=== PATIENT | female | born 1975 | race Caucasian/White ===

== ENCOUNTER 2020-01-31 17:18 | Emergency (ER) | payer BC ==
--- OUTSIDE RECORDS SUMMARY | 2020-01-31 17:20 | XMS REPORT | Clinical Summary ---
:1975 Author Organization [facility] Address [address] [place] [id number] Care Team Providers Name Role Phone Karlos Ordoñez MD Primary Care Provider Allergies Active Allergy Reactions Severity Noted Date Comments Penicillins Hives 06/28/2018 Medications Medication Sig Dispensed Refills Start Date End Date Status ibuprofen (IBU) Take 600 mg by 0 Active 600 MG tablet mouth every 6 (six) hours as needed for mild pain. gabapentin Take one 60 capsule 5 08/31/2018 Active (NEURONTIN) 300 capsule once at mg bedtime x1 capsuleIndicati week, then take ons: Cervical one capsule radicular pain twice a day tiZANidine PLEASE SEE 270 tablet 1 04/13/2019 Active (ZANAFLEX) 4 MG ATTACHED FOR tabletIndicatio DETAILED ns: Cervical DIRECTIONS radicular pain tiZANidine Take 1 tablet 90 tablet 5 08/31/2018 Disc ontinued (ZANAFLEX) 4 MG (4 mg total) by 9 (Reorder) tabletIndicatio mouth every 8 ns: Cervical (eight) hours radicular pain as needed for muscle spasms for up to 30 days. Active Problems No known active problems Encounters Date Type Specialty Care Team Description 04/13/2019 Refill Neurology Anju Navarro MD Cervical rad icular pain after 01/30/2019 Family History Medical History Relation Name Comments Ataxia Father Jama Dx NPH, HAS [employer] Restless legs syndrome Father Jama Dementia Maternal Aunt Pat Dementia Maternal Grandmother Nan Myopathy Mother Maria Isabel Relation Name Status Comments Father Jama Maternal Aunt Pat Maternal Grandmother Nan Mother Maria Isabel Social History Tobacco Use Types Packs/Day Years Used Date Never Smoker Alcohol Use Drinks/Week oz/Week Comments Yes 3 Cans of beer Sex Assigned at Date Recorded Not on file Job Start Date Occupation Industry Not on file Not on file Not on file Travel History Travel Start Travel End No recent travel history available. Last Filed Vital Signs Not on file Plan of Treatment Health Maintenance Due Date Last Done Comments CERVICAL CANCER SCREENING 1994 INFLUENZA VACCINE 02/14/2020 Results Not on fileafter 01/30/2019 Advance Directives For more information, please contact: [phone] Type Date Recorded Patient House Calls Nurse Practitioner Explanati on Advance Directives, Living Will and Medical Power of Airline Pilot
--- OUTSIDE RECORDS SUMMARY | 2020-01-31 17:20 | XMS REPORT | Continuity of Care Document ---
:1975 Author Organization [facility] [employer] Care Team Providers Name Role Phone [facility] [employer] Information Colingo Unavailable Un available Problems Problem Status Onset Classification Date Comments Sourc e Date Reported M54.12 - Active 07/09/19 [facility] "RADICULOPATHY, 16 [facility] CERVICAL REGION DIZZINESS Active 05/23/20 [facility] Depressive Active Problem 08/27/2019 [facility] disorder Jonah (disorder) Hypertensive Resolved Problem 08/27/2019 Dave as disorder, Medical systemic Center, arterial [facility] (disorder) [place] Morbid obesity Active Problem 08/27/2019 O PID (disorder) [place] Medications Medication Details Route Status Patient Ordering Order Source Instructions Provider Date ondansetron 4 mg 4 mg = 1 Active [facility] Dave as oral tablet, tab, PO, 013 Medical disintegrating TID, Nausea Cente r / Vomiting, Dissolve tab under tongue, # 20 tab, 0 Refill(s)Di ssolve tab under tongue meclizine 25 mg 25 mg = 1 Active [facility] Dave as oral tablet tab, PO, 013 Medical TID, Center dizziness, # 20 tab, 0 Refill(s) ondansetron 4 mg 4 mg, 1 Inactive [place] Dave as oral tablet, tab, Route: 013 Medical disintegrating PO, Drug Center form: TABDIS, ONCE, Dosing Weight 109.091, kg, Priority: STAT, Start date: 05/23/13 12:45:00, Stop date: 05/23/13 12:45:00([facility] as: Zofran ODT) meclizine 25 mg, 1 Inactive Fuad [facility] tab, Route: 013 Medical PO, Drug Center form: TAB, ONCE, Dosing Weight 109.091, kg, Priority: STAT, Start date: 05/23/13 12:45:00, Stop date: 05/23/13 12:45:00(Sa me as: Antivert) Allergies, Adverse Reactions, Alerts Substance Category Reaction Severity Reaction Status Date Comments S ource type Reported niacin Assertion Drug Active OPI D allergy [place] penicillins Assertion Drug Active [facility] allergy [place] Immunizations No Data Provided for This Section Results Order Name Results Value Reference Date Interpretation Comments Dorys rce Range IMMUNOLOGY CDC-HIV 1/2 Negative Negative 05/23 Colette s Ab *NA* Medical (05/23/2013 13:48:00) Ce nter CHEMISTRY U Preg Negative Negative 05/23 Normal [facility] (05/23/2013 13:33:09) Tn dical Center URINALYSIS UA 0.2 0.1 - 1.0 05/23 Normal [facility] Urobilinogen Medical Ajo URINALYSIS UA Leuk Est Trace Negative 05/23 ABN [facility] *ABN* Medical (05/23/2013 13:33:09) Ce nter URINALYSIS UA Nitrite Negative Negative 05/23 Normal [facility] (05/23/2013 13:33:09) Tn dical Center URINALYSIS UA Glucose Negative Negative 05/23 Normal [facility] (05/23/2013 13:33:09) Tn dical Center URINALYSIS UA Blood Negative Negative 05/23 Normal [facility] (05/23/2013 13:33:09) Tn dical Center URINALYSIS UA Bili Negative Negative 05/23 [facility] *NA* Medical (05/23/2013 13:33:09) Ce nter URINALYSIS UA Protein Negative Negative 05/23 Normal [facility] (05/23/2013 13:33:09) Tn dical Center URINALYSIS UA Ketones Negative Negative 05/23 [facility] *NA* Medical (05/23/2013 13:33:09) Ce nter URINALYSIS UA pH 7.0 5.0 - 8.0 05/23 Normal [facility] URINALYSIS UA Color Yellow Yellow 05/23 [facility] *NA* Medical (05/23/2013 13:33:09) Ce nter URINALYSIS UA Spec Grav 1.020 <=1.030 05/23 Normal [facility] Center URINALYSIS UA Turbidity Clear Clear 05/23 Normal [facility] (05/23/2013 13:33:09) [facility] UA Sq Epi Occasional Few 05/23 Normal [facility] /LPF [facility] URINALYSIS Micro? Performed 05/23 Normal [facility] (05/23/2013 13:33:09) [facility]IN[facility]IS UA Bacteria Occasional None Seen 05/23 Normal [place] /HPF [facility] URINALYSIS UA RBC None Seen 0 - 2 05/23 Normal [facility] (05/23/2013 13:33:09) [facility] URIN[facility]YSIS UA WBC 0-2 /HPF None Seen 05/23 Normal [facility] CHEMISTRY A/G Ratio 1.0 0.7 - 1.6 05/23 Normal [facility] CHEMISTRY Globulin 3.6 2.0 - 4.0 05/23 Normal [facility] CHEMISTRY B/C Ratio 12 6 - 25 05/23 Normal [facility] CHEMISTRY AGAP 13.5 10.0 - 05/23 Normal [facility] 20.0 [facility] CHEMISTRY Total Protein 7.3 6.4 - 8.4 05/23 Normal Dave [facility] CHEMISTRY Albumin Lvl 3.7 3.5 - 5.0 05/23 Normal [facility] CHEMISTRY ALANINE 24 0 - 65 05/23 Normal [facility] AMINOTRANSFER [facility] CHEMISTRY ASPARTATE 16 0 - 37 05/23 [facility] TRANSAMINASE [facility] CHEMISTRY Bili Total 0.4 0.2 - 1.3 05/23 Normal [facility] CHEMISTRY Alk Phos 91 39 - 136 05/23 Normal [facility] CHEMISTRY eGFR 81 05/23 <sup>1</sup>R esult Medical Comment: The Center eGFR is calculated using the CKD-EPI formula. In most young, healthy individuals the eGFR will be >90 mL/min/1.73m2 . The eGFR declines with age. An eGFR of 60-89 may be normal in some populations, particularly the elderly, for whom the CKD-EPI formula has not been extensively validated. Use of the eGFR is not recommended in the following populations:& lt;br/>
I ndividuals with unstable creatinine concentration s, including patients and those with serious co-morbid conditions.<b r/>
Patie nts with extremes in muscle mass or diet.

The data above are obtained from the National Kidney Disease Education Program (NKDEP) which additionally recommends that when the eGFR is used in patients with extremes of body mass index for purposes of drug dosing, the eGFR should be multiplied by the estimated BMI. CHEMISTRY Calcium Lvl 9.8 8.5 - 10.5 05/23 Normal [facility] CHEMISTRY Chloride Lvl 105 95 - 109 05/23 Normal [facility] CHEMISTRY Sodium Lvl 139 135 - 145 05/23 Normal [facility] CHEMISTRY Creatinine 0.9 0.5 - 1.4 05/23 Normal [facility] CHEMISTRY CO2 25 24 - 32 05/23 Normal [facility] CHEMISTRY Potassium Lvl 4.5 3.5 - 5.1 05/23 Normal [facility] CHEMISTRY BUN 11 7 - 22 05/23 Normal [facility] CHEMISTRY Glucose Lvl 118 70 - 99 05/23 HI <sup>2</sup>I T nterpretive Medical Data: Adult Center reference range values reflect the clinical guidelines
of the [place] [employer]. HEMATOLOGY Segs-Bands # 5.0 1.5 - 8.1 05/23 Normal [facility] HEMATOLOGY Basophils 0.0 0.0 - 1.0 05/23 Normal [facility] HEMATOLOGY Eosinophils 2.7 0.0 - 4.0 05/23 Normal [facility] HEMATOLOGY Monocytes 6.2 2.0 - 12.0 05/23 Normal [facility] HEMATOLOGY Segs 61.7 45.0 - 05/23 Normal [facility] 75.0 [facility] HEMATOLOGY Lymphocytes 29.4 20.0 - 05/23 Normal [place] 40.0 [facility] HEMATOLOGY Lymphocytes # 2.4 1.0 - 5.5 05/23 Normal [facility] HEMATOLOGY Eosinophils # 0.2 0.0 - 0.5 05/23 Normal [facility] HEMATOLOGY Basophils # 0.0 0.0 - 0.2 05/23 Normal [facility] HEMATOLOGY Monocytes # 0.5 0.0 - 0.8 05/23 Normal [facility] HEMATOLOGY WBC X 10x3 8.1 3.7 - 10.4 12/ [place] [facility] HEMATOLOGY RBC X 10x6 5.02 4.20 - 12/09 Normal [place] 5.40 /2012 [facility] HEMATOLOGY Hgb 14.1 12.0 - 12/ Normal [place] 16.0 /2012 [facility] HEMATOLOGY MCHC 32.8 32.0 - 12/ Normal [place] 36.0 /2012 [facility] HEMATOLOGY RDW 12.8 11.5 - 12/ Normal [place] 14.5 /2012 [facility] HEMATOLOGY MPV 7.9 7.4 - 10.4 12/ Normal [place] /2012 [facility] HEMATOLOGY MCH 28.1 27.0 - 12/ Normal [facility] 31.0 /2012 [facility] HEMATOLOGY Hct 43.0 36.0 - 12 Normal [facility] 48.0 /2012 [facility] HEMATOLOGY Platelet 304 133 - 450 12 Normal /2012 [facility] HEMATOLOGY MCV 85.6 81.0 - 12 Normal [facility] 99.0 /2012 [facility] Pathology Reports No Data Provided for This Section Diagnostic Reports Report Value Date Source Hand 2 views Bilateral EXAM: XR BILATERAL HAND 2 VIEWS 0 [facility] [place] DX DATE: 08/25/2019 15:15 CDT INDICATION: - L40.9 Psoriasis, unspecified COMPARISON: None. TECHNIQUE: PA and lateral radiographs of the miguel ateral hands. FINDINGS: No acute fracture or malalignment is identified. Joint spaces and bone mineral density are preserved. No soft tissue abnormality is identified. IMPRESSION: Normal exam of the bilateral hands. Elbow 3 views DX EXAM: XR RIGHT ELBOW 3 VIEWS 08/25/2019 [facility] [place] DATE: 08/25/2019 15:15 CDT INDICATION: - L40.9 Psoriasis, unspecified COMPARISON: None. TECHNIQUE: AP, lateral and oblique radiographs of the elbow FINDINGS: No acute fracture or malalignment is identified. No elbow joint effusion is present. No soft tiss ue abnormality is identified. IMPRESSION: Normal exam of the elbow. Hip bilat w pelvis and EXAM: XR BILATERAL HIP 2 VIEWS AND AP PEL VIS 08/25/2019 [facility] [place] both lat hips DX DATE: 08/25/2019 15:18 CDT INDICATION: - L40.9 Psoriasis, unspecified COMPARISON: None. TECHNIQUE: 2 views of each hip, AP pelvis FINDINGS: No acute fracture or malalignment is identified. Hip joint spaces are preserved bilaterally. Osteophyte formation is present at the bilateral acetabular margins. Sacroiliac joint widths are preserved. No soft tissue abnormality is identified. IMPRESSION: 1. No radiographic evidence of inflammatory spo ndyloarthropathy. 2. Mild bilateral hip joint osteoarthrosis. Spine cervical comp w EXAM: XR CERVICAL SPINE 7 VIEWS 08/25/2019 FIDE [place] obl-flx/ext DX DATE: 08/25/2019 15:18 CDT INDICATION: - L40.9 Psoriasis, unspecified COMPARISON: None. TECHNIQUE: AP, lateral, ope n-mouth odontoid, RPO and LPO, flexion, extension radiographs of the cervical spine show from the skull base through C7. FINDINGS: Vertebral body hei ghts and alignment are preserved. No disc height loss is identified. The bony neuroforamina are patent. No abnormal motion is identified upon flexion or extension. No prevertebral or paraspinous soft tissue abnor mality is identified. IMPRESSION: Normal exam of the cervical spine. Spine cervical wo EXAM: CT CERVICAL SPINE [facility]AST [facility] DATE: 09/04/2015 4:21 PM CDT INDICATION: Neck pain, radiculopathy. COMPARISON: None TECHNIQUE: Noncontrast axial imaging was acquired through the cervical spine. Coronal and sagittal reformatted images were generated. DLP: 349mGy-cm FINDINGS: Cervical vertebrae maintain normal height and alignment with straightening of the normal cervical lordosis. Craniocervical junction is intact. No acute frac ture. No spinal canal or foraminal stenosis. Intervertebral disc heights are maintained. No s ignificant disc protrusion. Prevertebral and paraspinal soft tissues are unr emarkable. Cerumen plug in the right ex ternal auditory canal. Minimal subpleural thickening at the right lung apex. 3 mm focus of hypoattenuation at the inferior aspect of the left thyroid lobe. IMPRESSION: Nonspecific straightening of the normal cervical lordosis. Otherwise unremarkable CT of the cervical spine. Brain wo contrast CT EXAM: CT of the brain without contrast. 02/2013 [facility] DATE: 05/23/2013 CLINICAL HISTORY: Vertigo. Left blurred vision COMPARISON: None. TECHNIQUE: Axial images of t he brain were obtained in a helical scanner from the skullbase through the vertex without contrast material administration. DISCUSSION: The density of the brain parenchyma is unremarka ble. No midline shift, mass effect, hydrocephalus or hemorrhagic lesions. The visualized portions of the paranasal sinuses and mastoid air cells are clear No acute bony lesions. IMPRESSION: No acute intracranial abnormality. Consultation Notes No Data Provided for This Section Discharge Summaries No Data Provided for This Section History and Physicals No Data Provided for This Section Vital Signs Vital Sign Value Date Comments Source Temperature Oral (F) 99.0 F 05/23/2013 [facility] Systolic (mm Hg) 145 05/23/2013 [facility] Heart Rate 70 05/23/2013 [facility] Diastolic (mm Hg) 94 05/23/2013 [facility] Respitory Rate 16 05/23/2013 [facility] Weight 109.091 05/23/2013 [facility] Encounters Location Location Encounter Encounter Reason Attending ADM [place] Stat us Source Details Type Number For Provider Date Date Visit [facility] Emergency [id number] DIZZINES GIULIANO 05/23 05/23 Acti ve [facility] S PAULY /2012 [facility] [id number] Geovanna Pinedo 09/03 09/04 [facility] [place] [facility] [id number] Manjari 08/24 08/25 [facility] [place] /2019 [facility] Procedures Procedure Code Date Perfomer Comments Source Carpal tunnel [id number] [facility] release [place] Excision [id number] [facility] [place] Assessment and Plan No Data Provided for This Section Plan of Care No Data Provided for This Section Social History Social History Date Source Social History TypeResponse 03/01/2014 [facility] Alcohol Current, Frequency: 1-2 times per month. Employment/School Status: Employed. Work/School description: RN at [email or web address] Substance Abuse Use: None. Smoking Status Never smoker; Type: Cigarettes; Previous treatment: None; Concerns about tobacco use in household: No; Exposure to Tobacco Smoke None; Cigarette Smoking Last 365 Days No; Reg Smoking Cessation Counseling No entered on: 07/02/15 1Married, 2 kids and no pets Family History No Data Provided for This Section Advance Directives No Data Provided for This Section Functional Status No Data Provided for This Section
[2020-01-31 19:30] LABS: Absolute Lymphocytes (CBC) 1.9 K/uL (0.7-4.9); Lymphocytes % 30.5 % (15.3-44.8); MPV 8.5 fL (7.6-11.3); RBC Red Blood Cell Count 4.93 M/uL (3.86-4.86)
[2020-01-31 19:32] LABS: Urine Blood 2+ (NEG); Urine Glucose NEGATIVE (NEG); Urine Protein NEGATIVE (NEG); Urine Specific Gravity 1.025 (1.005-1.030); Urine pH 5.5 (5.0-7.0)
[2020-01-31 19:47] LABS: Albumin 3.5 g/dL (3.4-5.0); Bilirubin Direct 0.2 mg/dL (0-0.2); Potassium 3.9 mmol/L (3.5-5.1)
--- NOTE | 2020-01-31 20:25 | RAD REPORT ---
EXAM DESCRIPTION: CT - Abdomen Pelvis W Contrast - 01/31/2020 8:07 pm CLINICAL HISTORY: Abdominal pain COMPARISON: 2015 TECHNIQUE: Computed axial tomography of the abdomen pelvis was obtained. 100 cc Isovue-300 was admin istered intravenously. Oral contrast was not requested which limits evaluation of bowel. All CT scans are performed using dose optimization technique as appropriate and may include automated exposure control or mA/KV adjustment according to patient size. FINDINGS: The liver, spleen, pancreas, adrenal and kidneys appear unremarkable. There is no evidence of diverticulitis. Evaluation of the appendix is limited secondary to the lack of oral contrast. However, an abnormal ap pendix is not seen. Uterine fibroids are present. Cholecystectomy. Postsurgical changes involve stomach IMPRESSION: No acute abnormality is displayed.
--- NOTE | 2020-01-31 20:39 | ER ---
Nurse's Notes [facility] Name: Cortney Thomson Age: 44 yrs Sex: Female : 1975 Arrival Date: 01/31/2020 Time: 17:21 Bed 18 Private MD: Diagnosis: Abdominal tenderness Presentation: 01/30 17:29 Chief complaint: Patient states: RLQ pain x 6 days. Diarrhea x 4 days. Last few days ca1 started having epigastric and RUQ pain. Reports nausea. Denies vomiting and fever. Coronavirus screen: Client denies travel out of the [place] in the last 14 days. At this time, the client does not indicate any symptoms associated with coronavirus-19. Ebola Screen: Patient negative for fever greater than or equal to 101.5 degrees Fahrenheit, and additional compatible Ebola Virus Disease symptoms Patient denies exposure to infectious person. Patient denies travel to an Ebola-affected area in the 21 days before illness onset. No symptoms or risks identified at this time. Initial Sepsis Screen: Does the patient meet any 2 criteria? No. Patient's initial sepsis screen is negative. Does the patient have a suspected source of infection? No. Patient's initial sepsis screen is negative. Risk Assessment: Do you want to hurt yourself or someone else? Patient reports no desire to harm self or others. Onset of symptoms was January 31, 2020. 17:29 Method Of Arrival: Ambulatory ca1 17:29 Acuity: CHANELLE 3 ca1 Triage Assessment: 19:30 General: Appears in no apparent distress. comfortable, Behavior is cooperative. GI: mt2 Reports lower abdominal pain, nausea. WEIGHT CHECKER: 17:35 LMP 01/31/2020 ca1 Historical: - Allergies: 17:35 Amoxicillin; ca1 17:35 PENICILLINS; ca1 - Home Meds: 17:35 losartan K 100 mg 1 tab daily [Active]; Lyrica 75 mg Oral 1 cap 2 times per day ca1 [Active]; Vitamin D Oral 50,000 unit once a week [Active]; - PMHx: 17:35 Hypertension; hyperparathyroidism; ca1 - PSHx: 17:35 Cholecystectomy; Gastric Sleeve; Uterine Ablation; Carpal Tunnel Repair; ca1 - Immunization history:: Adult Immunizations up to date. - Social history:: Smoking status: Patient denies any tobacco usage or history of. Screenin:00 Abuse screen: Denies threats or abuse. Nutritional screening: No deficits noted. mt2 Tuberculosis screening: No symptoms or risk factors identified. Fall Risk None identified. Assessment: 20:17 GI: Bowel sounds present X 4 quads. Abdomen is tender to palpation X 4 quads. mt2 20:45 Reassessment: Patient and/or family updated on plan of care and expected duration. Pain mt2 level reassessed. Patient is alert, oriented x 3, equal unlabored respirations, skin warm/dry/pink. Patient states symptoms have improved. General: Appears comfortable, Behavior is cooperative. Pain: Denies pain. Vital Signs: 17:29 BP 133 / 94; Pulse 64; Resp 15 S; Temp 97.8(TE); Pulse Ox 100% on R/A; Weight 106.59 kg ca1 (R); Height 5 ft. 6 in. (167.64 cm) (M); Pain 6/10; 19:00 BP 99 / 83; Pulse 70; Resp 16; Pulse Ox 97% on R/A; Pain 0/10; mt2 20:45 BP 122 / 72; Pulse 57; Resp 16; Pulse Ox 100% on R/A; Pain 0/10; mt2 17:29 Body Mass Index 37.93 (106.59 kg, 167.64 cm) ca1 ED Course: 17:21 Patient arrived in ED. rg4 17:32 Triage completed. ca1 17:35 Arm band placed on right wrist. ca1 18:45 Mj Robledo PA is PHCP. jr8 18:45 Edd Anderson MD is Attending Physician. jr8 19:15 Inserted saline lock: 22 gauge in right antecubital area, using aseptic technique. rb1 Blood collected. 19:17 Jolie Moses, ALEJANDRA is Primary Nurse. mt2 20:08 CT Abd/Pelvis - IV Contrast Only In Process Unspecified. EDMS 20:16 Patient has correct armband on for positive identification. Bed in low position. Call mt2 light in reach. Side rails up X 1. 20:16 Inserted saline lock: 20 gauge in left antecubital area, using aseptic technique. mt2 20:16 IV discontinued, intact, bleeding controlled, No redness/swelling at site. Pressure mt2 dressing applied. 20:45 No provider procedures requiring assistance completed. IV discontinued, intact, mt2 bleeding controlled, No redness/swelling at site. Pressure dressing applied. Administered Medications: No medications were administered Outcome: 20:38 Discharge ordered by . mari 20:45 Discharged to home ambulatory. mt2 20:45 Condition: good 20:45 Discharge instructions given to patient, Instructed on discharge instructions, follow up and referral plans. medication usage. 20:52 Patient left the ED. mt2 Signatures: Dispatcher [employer] EDMS Mj Robledo PA PA jr8 Stacy Jorge, RN RN rb1 Va Howard4 Kasey Hinojosa RN RN ca1 Jolie Moses RN RN mt2
--- NOTE | 2020-01-31 20:40 | EDPHYS ---
Physician Documentation [facility] Name: Cortney Thomson Age: 44 yrs Sex: Female : 1975 Arrival Date: 01/31/2020 Time: 17:21 Bed 18 Private MD: ED Physician Edd Anderson HPI: 01/30 20:35 This 44 yrs old Female presents to ER via Ambulatory with complaints of jr8 Abdominal Pain. 20:35 The patient presents with abdominal pain in the periumbilical area. right lower jr8 quadrant. Onset: The symptoms/episode began/occurred gradually. The symptoms do not radiate. Associated signs and symptoms: none. The symptoms are described as sharp. Modifying factors: The symptoms are alleviated by nothing, the symptoms are aggravated by nothing. Severity of pain: At its worst the pain was mild in the emergency department the pain is unchanged. The patient has not experienced similar symptoms in the past. The patient has not recently seen a physician. Came to ED because the pain started to intensify . [employer]IC: 17:35 LMP 01/31/2020 ca1 Historical: - Allergies: 17:35 Amoxicillin; ca1 17:35 PENICILLINS; ca1 - Home Meds: 17:35 losartan K 100 mg 1 tab daily [Active]; Lyrica 75 mg Oral 1 cap 2 times per day ca1 [Active]; Vitamin D Oral 50,000 unit once a week [Active]; - PMHx: 17:35 Hypertension; hyperparathyroidism; ca1 - PSHx: 17:35 Cholecystectomy; Gastric Sleeve; Uterine Ablation; Carpal Tunnel Repair; ca1 - Immunization history:: Adult Immunizations up to date. - Social history:: Smoking status: Patient denies any tobacco usage or history of. ROS: 20:35 Eyes: Negative for injury, pain, redness, and discharge, ENT: Negative for injury, jr8 pain, and discharge, Neck: Negative for injury, pain, and swelling, Cardiovascular: Negative for chest pain, palpitations, and edema, Respiratory: Negative for shortness of breath, cough, wheezing, and pleuritic chest pain, Back: Negative for injury and pain, MS/Extremity: Negative for injury and deformity, Skin: Negative for injury, rash, and discoloration, Neuro: Negative for headache, weakness, numbness, tingling, and seizure. 20:35 Abdomen/GI: Positive for abdominal pain, Negative for nausea, vomiting, and diarrhea, constipation, abdominal cramps, abdominal distension, anorexia, dysphagia, hematemesis, black/tarry stool, rectal pain, rectal bleeding, bowel incontinence, flatulence. Exam: 20:35 Eyes: Pupils equal round and reactive to light, extra-ocular motions intact. Lids and jr8 lashes normal. Conjunctiva and sclera are non-icteric and not injected. Cornea within normal limits. Periorbital areas with no swelling, redness, or edema. ENT: Nares patent. No nasal discharge, no septal abnormalities noted. Tympanic membranes are normal and external auditory canals are clear. Oropharynx with no redness, swelling, or masses, exudates, or evidence of obstruction, uvula midline. Mucous membranes moist. Neck: Trachea midline, no thyromegaly or masses palpated, and no cervical lymphadenopathy. Supple, full range of motion without nuchal rigidity, or vertebral point tenderness. No Meningismus. Cardiovascular: Regular rate and rhythm with a normal S1 and S2. No gallops, murmurs, or rubs. Normal PMI, no JVD. No pulse deficits. Respiratory: Lungs have equal breath sounds bilaterally, clear to auscultation and percussion. No rales, rhonchi or wheezes noted. No increased work of breathing, no retractions or nasal flaring. Back: No spinal tenderness. No costovertebral tenderness. Full range of motion. Skin: Warm, dry with normal turgor. Normal color with no rashes, no lesions, and no evidence of cellulitis. MS/ Extremity: Pulses equal, no cyanosis. Neurovascular intact. Full, normal range of motion. Neuro: Awake and alert, GCS 15, oriented to person, place, time, and situation. Cranial nerves II-XII grossly intact. Motor strength 5/5 in all extremities. Sensory grossly intact. Cerebellar exam normal. Normal gait. 20:35 Abdomen/GI: Inspection: obese Bowel sounds: active, all quadrants, Palpation: soft, in all quadrants, mild abdominal tenderness, in the umbilical area and right lower quadrant, mass, is not appreciated, rebound tenderness, is not appreciated, voluntary guarding, is not appreciated, involuntary guarding, is not appreciated, no appreciated organomegaly, Indicators: McBurney's point is not tender, Renteria's sign is negative, Rovsing's sign is negative, Liver: tenderness, is not appreciated. Vital Signs: 17:29 BP 133 / 94; Pulse 64; Resp 15 S; Temp 97.8(TE); Pulse Ox 100% on R/A; Weight 106.59 kg ca1 (R); Height 5 ft. 6 in. (167.64 cm) (M); Pain 6/10; 19:00 BP 99 / 83; Pulse 70; Resp 16; Pulse Ox 97% on R/A; Pain 0/10; mt2 20:45 BP 122 / 72; Pulse 57; Resp 16; Pulse Ox 100% on R/A; Pain 0/10; mt2 17:29 Body Mass Index 37.93 (106.59 kg, 167.64 cm) ca1 MDM: 18:46 Patient medically screened. jr8 20:35 Differential diagnosis: diverticulitis, Dysmenorrhea, Endometriosis, non-specific abd jr8 pain, Pyelonephritis, Ureterolithiasis, urinary tract infection, appendicitis, colitis. Data reviewed: vital signs, nurses notes, lab test result(s), radiologic studies, CT scan. Data interpreted: Pulse oximetry: on room air is 97 %. Interpretation: normal. Counseling: I had a detailed discussion with the patient and/or guardian regarding: the historical points, exam findings, and any diagnostic results supporting the discharge/admit diagnosis, lab results, radiology results, the need for outpatient follow up, a family practitioner, a vice investigator, to return to the emergency department if symptoms worsen or persist or if there are any questions or concerns that arise at home. 20:39 Special discussion: Based on the patient's Hx, exam, and Dx evaluation, there is no jr8 indication for emergent surgery or inpatient Tx. It is understood by the patient/guardian that if the Sx's persist or worsen they need to return immediately for re-evaluation. 01/30 18:46 Order name: Basic Metabolic Panel; Complete Time: 20:04 8 01/30 18:46 Order name: CBC with Diff; Complete Time: 20:04 8 01/30 18:46 Order name: Hepatic Function; Complete Time: 20:04 jr8 01/30 18:46 Order name: Lipase; Complete Time: 20:04 jr8 01/30 18:52 Order name: Urine Dipstick--Ancillary (enter results); Complete Time: 20:04 01/30 18:52 Order name: Urine --Ancillary (enter results); Complete Time: 20:04 01/30 18:46 Order name: IV Saline Lock; Complete Time: 19:23 8 01/30 18:46 Order name: Labs collected and sent; Complete Time: 19:23 8 01/30 18:46 Order name: Urine Test (obtain specimen); Complete Time: 18:51 8 01/30 18:46 Order name: Urine Dipstick-Ancillary (obtain specimen); Complete Time: 18:51 8 01/30 19:17 Order name: CT Abd/Pelvis - IV Contrast Only; Complete Time: 20:33 jr8 Administered Medications: No medications were administered Disposition: 01/31/20 20:38 Discharged to Home. Impression: Abdominal tenderness. - Condition is Stable. - Discharge Instructions: Abdominal Pain, Adult. - Medication Reconciliation Form, Thank You Letter, Antibiotic Education, Prescription Opioid Use form. - Follow up: Private Physician; When: 2 - 3 days; Reason: Recheck today's complaints, Continuance of care, Re-evaluation by your physician. - Problem is new. - Symptoms have improved. Signatures: Dispatcher [employer] EDMS Mj Robledo PA PA jr8 Kasey Hinojosa RN RN ca1 Jolie Moses RN RN mt2 Corrections: (The following items were deleted from the chart) 20:52 20:38 01/31/2020 20:38 Discharged to Home. Impression: Abdominal tenderness. Condition mt2 is Stable. Forms are Medication Reconciliation Form, Thank You Letter, Antibiotic Education, Prescription Opioid Use. Follow up: Private Physician; When: 2 - 3 days; Reason: Recheck today's complaints, Continuance of care, Re-evaluation by your physician. Problem is new. Symptoms have improved. jr8
[2020-01-31 22:53] VITALS: TEMP 97.8
[2020-01-31 22:55] VITALS: BP 122/72; O2SAT 100
== END 2020-01-31 20:52 | disposition home or self-care (01) ==
LOC: ER 17:18
DX: R10.813 Right lower quadrant abdominal tenderness (principal); I10 Essential (primary) hypertension; Z88.0 Allergy status to penicillin; Z88.1 Allergy status to other antibiotic agents
CPT/HCPCS: 85025; 80048; 36415; 81025; 80076; 81003; 83690; 74177; Q9967